=== PATIENT | male | born 1975 | race African-American/Black ===

== ENCOUNTER → 2019-07-30 | Emergency (ER) | payer OTHER ==
[~2019-07-30] VITALS: Ht 180.3 cm; Wt 81.6 kg
[2019-07-30 04:09] VITALS: BP 108/73
== END | disposition home or self-care (01) ==
LOC: ER 02:11 → EEVIPCON 02:11
DX: S16.1XXA Strain of muscle, fascia and tendon at neck level, initial encounter (principal); S20.212A Contusion of left front wall of thorax, initial encounter; S80.12XA Contusion of left lower leg, initial encounter; R51 Headache; Y04.2XXA Assault by strike against or bumped into by another person, initial encounter; Y93.89 Activity, other specified; Y92.89 Other specified places as the place of occurrence of the external cause; Y99.8 Other external cause status
CPT/HCPCS: 70450; 70486; 71250; 72125; 74176